=== PATIENT | female | born 1935 | race Caucasian/White ===

== ENCOUNTER → 2019-04-04 16:52 | Outpatient (CLI) | payer MEDICARE, OTHER ==
[2016-02-26 06:27] VITALS: BMI 20.2
[~2019-04-04 16:52] MED LIST: COZAAR50 MG PO; MACRODANTIN50 MG PO; NORCO 7.5/325 T1 TA1 PO; OMEPRAZOLE20 M1 PO; PREMPRO 0.45-1.1 TAB PO; TOPROL XL50 MG PO; ULTRAM50 MG PO; VITAMIN D250000 UNIT PO; XANAX0.25 MG PO
[2019-04-04 17:02] LABS: HEMATOCRIT 36.9 % (36.0-48.0); HEMOGLOBIN 12.8 g/dL (12-16); LYMPHOCYTES 28.7 % (15-50); MCH 32.2 pg (26.0-34.0); MCHC 34.7 g/dL (31.0-37.0); MCV 92.7 fL (80.0-100.0); MEAN PLATELET VOLUME 10.6 fL (7.4-10.4); NEUTROPHILS 64.3 % (40-80); PLATELET COUNT 258 10x3/uL (130-400); RBC 3.98 10x6/uL (4.00-5.40); RDW 14.8 % (11.5-14.5); WBC 6.3 10x3/uL (4.8-10.8)
[2019-04-04 17:14] LABS: C-REACTIVE PROTEIN 0.2 mg/dL (0.0-0.9); URIC ACID 2.9 mg/dL (2.6-7.2)
[2019-04-04 18:21] LABS: ERYTHROCYTE SEDIMENTATION RATE 6 mm/hr (0-30)
[2019-04-06 12:09] LABS: ANA REFLEX - DIRECT Negative (Negative)
== END | disposition home or self-care (01) ==
LOC: D.LABREF 16:52
PROVIDERS: ATTEND Clinical Nurse Specialist Family Health
DX: M25.50 Pain in unspecified joint (principal)

== ENCOUNTER → 2021-02-20 18:40 | Outpatient (CLI) | payer MEDICARE, OTHER ==
[2016-02-26 06:27] VITALS: BMI 20.2
== END | disposition home or self-care (01) ==
LOC: D.LABREF 18:40
PROVIDERS: ATTEND Orthopaedic Surgery
DX: M17.11 Unilateral primary osteoarthritis, right knee (principal)